=== PATIENT | female | born 1965 | race Caucasian/White ===

== ENCOUNTER → 2018-10-03 | Outpatient (CLI) | payer BC ==
--- NOTE | 2018-10-03 09:22 | Diagnostic Imaging Report ---
PROCEDURE: US abdomen complete. TECHNIQUE: Multiple real-time grayscale images were obtained over the abdomen in various projections. INDICATION: Bloating. FINDINGS: The liver is normal in size at 15.7 cm. No discrete liver mass is identified. The gallbladder is without stones or sludge. No wall thickening or biliary duct dilatation is identified. The pancreas is unremarkable. The spleen is normal in size 8.7 cm. Visualized abdominal aorta is non-aneurysmal. Right and left kidney are unremarkable. No calculi or hydronephrosis is identified. There is no ascites. Note is made of pleural vein is patent and shows normal direction of flow. IMPRESSION: Unremarkable abdominal ultrasound. Dictated by: Dictated on workstation # [id number]
--- NOTE | 2018-10-03 12:07 | Diagnostic Imaging Report ---
PROCEDURE: US Non-ob pelvis comp/trans. TECHNIQUE: Multiple realtime grayscale images were obtained of the pelvis in various projections endovaginally. Transabdominal imaging was also performed. INDICATION: Bloating. FINDINGS: The uterus is retroflexed measuring 6.2 x 4.6 x 3.4 cm. Endometrium is 6 mm in thickness. No myometrial mass is identified. There are small cervical nabothian cysts present. The left ovary was not visualized. There appears to be a cyst in the right adnexa approximately 4 cm in size, indeterminate. This may be arising from the right ovary which was not well visualized. There is no free fluid. IMPRESSION: 4 cm right adnexal cyst. No other significant abnormality is detected. Dictated by: Dictated on workstation # [id number]
== END ==
LOC: RAD FS 08:05
DX: N83.8 Other noninflammatory disorders of ovary, fallopian tube and broad ligament (principal); R14.0 Abdominal distension (gaseous)
CPT/HCPCS: 76700; 76830; 76856

== ENCOUNTER → 2018-12-01 | Outpatient (CLI) | payer BC ==
--- NOTE | 2018-12-01 09:06 | Diagnostic Imaging Report ---
PROCEDURE: US Non-ob pelvis comp/trans. TECHNIQUE: Multiple realtime grayscale images were obtained of the pelvis in various projections endovaginally. Transabdominal imaging was also performed. INDICATION: Right ovarian cyst. FINDINGS: The previous pelvic ultrasound exam performed on 10/03/2018 noted a 4 CM cyst in the right adnexa that cyst is again identified and now measures 3.6 x 3.0 x 2.6 CM. This cyst may contain a few internal echoes suggesting it is slightly complicated by infection and/or hemorrhage. The right ovary itself was not well visualized. The left ovary could not be identified either. There is no solid pelvic mass identified but there was a small amount of free fluid in the pelvis. The uterus is not enlarged measuring 6.8 x 4.7 x 3.3 CM. The endometrial lining is not thickened measuring 4 MM. A small subcentimeter nabothian cyst was noted. IMPRESSION: 1. The slightly complicated cyst in the right adnexa seen previously is again evident and does not seem to have changed significantly. 2. There is no acute pelvic abnormality noted otherwise. Dictated by: Dictated on workstation # [id number]
== END ==
LOC: RAD FS 08:08
DX: N83.201 Unspecified ovarian cyst, right side (principal)
CPT/HCPCS: 76830; 76856

== ENCOUNTER → 2019-04-04 | Outpatient (CLI) | payer BC ==
--- NOTE | 2019-04-04 11:44 | Diagnostic Imaging Report ---
PROCEDURE: US Non-ob pelvis comp/trans. INDICATION: History of renal cyst, follow-up. Postmenopausal TECHNIQUE: Multiple real time kim scale sonographic images were obtained of the pelvis transabdominally and transvaginally. CORRELATION STUDY: 12/01/2018 FINDINGS: UTERUS: 5.6 x 4.0 x 3.2 cm. The uterus appears unremarkable. ENDOMETRIUM: 4 mm. The endometrium appearing unremarkable. RIGHT OVARY: 2.3 x 0.8 x 0.8 cm The right ovary has an unremarkable appearance. The previously noted right ovarian cyst is no longer visualized, appearing resolved. No concerning mass. Normal blood flow. LEFT OVARY: Again is not visualized. This may be owing to its position or obscuration. No significant free pelvic fluid. IMPRESSION: 1. The previously noted right adnexal cyst not visualized at follow-up. 2. Nonvisualization of the left ovary. Dictated by: Dictated on workstation # [id number]
== END ==
LOC: RAD 10:04
PROVIDERS: ATTEND Obstetrics & Gynecology
DX: N83.201 Unspecified ovarian cyst, right side (principal); Z87.448 Personal history of other diseases of urinary system; Z78.0 Asymptomatic menopausal state
CPT/HCPCS: 76830; 76856